=== PATIENT | female | born 1950 | race African-American/Black ===

== ENCOUNTER 2016-09-26 20:47 | Emergency (ER) | payer OTHER ==
[2016-09-26 23:38] LABS: BASOPHIL 0.2 % (0-2); EOSINOPHIL 0.2 % (0-5); HCT 41.5 % (37.0-47.0); HGB 13.8 g/dl (12.5-16.0); LYMPHOCYTE 23.2 % (15-48); MCH 28.2 pg (25.0-31.0); MCHC 33.3 g/dL (32.0-36.0); MCV 84.9 fL (78.0-100.0); MONOCYTE 9.2 % (0-12); NEUTROPHIL 67.2 % (41-80); PLT 282 K/uL (150-400); RBC 4.89 M/uL (4.20-5.40); RDW 14.7 % (11.5-14.0); WBC 4.7 K/uL (4.0-10.5)
[2016-09-26 23:47] LABS: ALBUMIN 4.9 g/dL (3.4-4.8); BILIRUBIN - TOTAL 0.2 mg/dL (0.1-1.0); CREATININE 1.4 mg/dL (0.5-1.0); GLOBULIN (CALCULATION) 3.4 g/dL (2.2-4.2); POTASSIUM 3.4 mmol/L (3.5-5.1); TOTAL PROTEIN 8.3 g/dL (6.4-8.3)
[2016-09-26 23:50] LABS: COLOR YELLOW (YELLOW)
[2016-09-26 23:51] LABS: BILIRUBIN NEGATIVE (NEGATIVE); BLOOD TRACE-INTACT Ery/uL (NEGATIVE); CLARITY CLEAR (CLEAR); GLUCOSE (U) NORMAL (NORMAL); KETONE (U) NEGATIVE (NEGATIVE); LEUKOCYTES 1+ Leu/uL (NEGATIVE); NITRITE NEGATIVE (NEGATIVE); PROTEIN NEGATIVE (NEGATIVE); UROBILINOGEN 0.2 mg/dL (0.2-1.0)
[2016-09-27 00:08] LABS: BACTERIA TRACE; MUCOUS TRACE
== END 2016-09-27 01:40 | disposition home or self-care (01) ==
LOC: FER 20:47
PROVIDERS: Nurse Practitioner Family
DX: R19.7 Diarrhea, unspecified (principal); N39.0 Urinary tract infection, site not specified; N18.9 Chronic kidney disease, unspecified; D86.9 Sarcoidosis, unspecified; Z88.5 Allergy status to narcotic agent; Z88.8 Allergy status to other drugs, medicaments and biological substances; Z79.51 Long term (current) use of inhaled steroids; Z79.899 Other long term (current) drug therapy
CPT/HCPCS: 36415; 80053; 81001; 85025

== ENCOUNTER 2016-11-18 19:31 | Emergency (ER) | payer OTHER ==
[2016-11-18 20:17] LABS: BASOPHIL 0.4 % (0-2); EOSINOPHIL 0.2 % (0-7); HCT 38.7 % (37.0-47.0); HGB 13.3 g/dl (12.5-16.0); LYMPHOCYTE 9.3 % (15-48); MCH 29.3 pg (25.0-31.0); MCHC 34.4 g/dL (32.0-36.0); MCV 85.2 fL (78.0-100.0); MONOCYTE 3.4 % (0-12); MPV 10.1 fL (6.0-9.5); NEUTROPHIL 86.7 % (41-80); PLT 305 K/uL (150-400); RBC 4.54 M/uL (4.20-5.40); WBC 5.3 K/uL (4.0-10.5)
[2016-11-18 20:37] LABS: ALBUMIN 4.1 g/dL (3.4-4.8); BILIRUBIN - TOTAL 0.3 mg/dL (0.1-1.0); CREATININE 1.1 mg/dL (0.5-1.0); GLOBULIN (CALCULATION) 3.1 g/dL (2.2-4.2); POTASSIUM 4.1 mmol/L (3.5-5.1); TOTAL PROTEIN 7.2 g/dL (6.4-8.3)
[2016-11-18 21:07] LABS: BILIRUBIN NEGATIVE (NEGATIVE); BLOOD NEGATIVE Ery/uL (NEGATIVE); CLARITY CLEAR (CLEAR); COLOR YELLOW (YELLOW); GLUCOSE (U) NORMAL (NORMAL); KETONE (U) NEGATIVE (NEGATIVE); LEUKOCYTES NEGATIVE Leu/uL (NEGATIVE); NITRITE NEGATIVE (NEGATIVE); PROTEIN NEGATIVE (NEGATIVE); SPECIFIC GRAVITY 1.015 (1.001-1.030); pH 7.5 (5.0-9.0)
== END 2016-11-18 23:50 | disposition home or self-care (01) ==
LOC: FER 19:31
PROVIDERS: Emergency Medicine Emergency Medical Services
DX: R11.2 Nausea with vomiting, unspecified (principal); R30.0 Dysuria; I12.0 Hypertensive chronic kidney disease with stage 5 chronic kidney disease or end stage renal disease; N18.6 End stage renal disease; J44.9 Chronic obstructive pulmonary disease, unspecified; D86.9 Sarcoidosis, unspecified; Z90.710 Acquired absence of both cervix and uterus; Z88.5 Allergy status to narcotic agent; Z88.8 Allergy status to other drugs, medicaments and biological substances
CPT/HCPCS: 36415; 71010; 80053; 81003; 82150; 83690; 85025; 87088; 93005; J2060; J2405; J2930

== ENCOUNTER 2020-08-16 19:01 | Emergency (ER) | payer OTHER ==
[~2020-08-16 19:01] MED LIST: AMOXICILLIN875 MG PO; ANTIVERT25 MG PO; ASPIRIN CHEWABL81 MG PO; ATIVAN0.5 MG PO; AUGMENTIN 875-1 EACH PO; BENADRYL25 MG PO; BENTYL10 MG PO; BUSPIRONE HCL15 MG PO; CEFDINIR300 MG PO; CLEOCIN300 MG PO; COZAAR50 MG PO; CRESTOR5 MG PO; DEBROX15 ML AU; FLONASE ALLER15.8 ML; HCTZ12.5 MG PO; LIPITOR40 MG PO; MACROBID100 MG PO; NORVASC5 MG PO; PHENERGAN12.5 M1 PO; PHENERGAN25 M1 PO; PLAVIX75 MG PO; PREDNISONE 20MG20 MG PO; TAMIFLU 75MG CA75 MG PO; TOPROL XL25 MG PO; TRAMADOL HCL50 MG PO; TRAZODONE 100M100 MG PO; VITAMIN D-32000 UNIT PO; WELLBUTRIN SR150 MG PO; ZOFRAN4 M1 PO; ZOFRAN4 MG PO; ZOFRAN8 MG PO
[2020-08-16 19:46] LABS: BASOPHIL 0.9 % (0-2); EOSINOPHIL 2.7 % (0-7); HCT 42.2 % (37.0-47.0); HGB 13.5 g/dl (12.5-16.0); LYMPHOCYTE 29.5 % (15-48); MCV 90.6 fL (78.0-100.0); MONOCYTE 12.1 % (0-12); MPV 10.1 fL (6.0-9.5); NEUTROPHIL 54.5 % (41-80); NRBC 0; PLT 290 K/uL (150-400); RBC 4.66 M/uL (4.20-5.40); RDW 14.2 % (11.5-14.0); WBC 3.4 K/uL (4.0-10.5)
[2020-08-16 19:55] LABS: INR 0.97 (0.9-1.2); PROTHROMBIN TIME 12.2 SECONDS (11.4-13.6); PTT 27.3 SECONDS (22.2-34.7)
[2020-08-16 20:01] LABS: BILIRUBIN - TOTAL 0.6 mg/dL (0.2-1.0); BUN/CREAT RATIO (CALC) 17.1 RATIO; CREATININE 1.29 mg/dL (0.51-0.95); GLOBULIN (CALCULATION) 3.8 g/dL; MAGNESIUM 2.2 mg/dL (1.8-2.4); POTASSIUM 3.8 mmol/L (3.5-5.1); TOTAL PROTEIN 7.8 g/dL (6.4-8.2)
[2020-08-17] MEDS ORDERED: ZOFRAN4 M1 PO (00:55)
[2020-08-17] MEDS ORDERED: NORCO 5-325 TA1 EACH PO (00:55)
== END 2020-08-17 01:17 | disposition home or self-care (01) ==
LOC: FER 19:01
PROVIDERS: Emergency Medicine
DX: R10.13 Epigastric pain (principal); R07.89 Other chest pain; R11.2 Nausea with vomiting, unspecified; I25.10 Atherosclerotic heart disease of native coronary artery without angina pectoris; Z79.82 Long term (current) use of aspirin; Z79.02 Long term (current) use of antithrombotics/antiplatelets; Z98.890 Other specified postprocedural states; Z95.5 Presence of coronary angioplasty implant and graft; Z88.5 Allergy status to narcotic agent; Z88.8 Allergy status to other drugs, medicaments and biological substances; Z20.822 Contact with and (suspected) exposure to COVID-19
CPT/HCPCS: 36415; 71045; 71275; 80053; 83735; 84484; 85025; 85379; 85610; 85730; 93005; J1170; J2550; J7030; Q9967; U0002

== ENCOUNTER 2020-09-01 23:02 | Emergency (ER) | payer OTHER ==
[~2020-09-01 23:02] MED LIST changes: +NORCO 5-325 TA1 EACH PO
[2020-09-01 23:28] LABS: BASOPHIL 0.9 % (0-2); EOSINOPHIL 2.2 % (0-7); HCT 39.9 % (37.0-47.0); HGB 12.9 g/dl (12.5-16.0); LYMPHOCYTE 41.4 % (15-48); MCH 29.2 pg (25.0-31.0); MCHC 32.3 g/dL (32.0-36.0); MCV 90.3 fL (78.0-100.0); MONOCYTE 10.6 % (0-12); MPV 10.6 fL (6.0-9.5); NEUTROPHIL 44.6 % (41-80); NRBC 0; PLT 274 K/uL (150-400); RBC 4.42 M/uL (4.20-5.40); RDW 13.8 % (11.5-14.0); WBC 3.2 K/uL (4.0-10.5)
[2020-09-01 23:40] LABS: ALBUMIN 3.7 g/dL (3.4-5.0); BILIRUBIN - TOTAL 0.5 mg/dL (0.2-1.0); BUN/CREAT RATIO (CALC) 16.2 RATIO; CREATININE 0.99 mg/dL (0.51-0.95); GLOBULIN (CALCULATION) 3.7 g/dL; POTASSIUM 3.4 mmol/L (3.5-5.1); TOTAL PROTEIN 7.4 g/dL (6.4-8.2)
== END 2020-09-02 00:30 | disposition home or self-care (01) ==
LOC: FER 23:02
PROVIDERS: Emergency Medicine
DX: R10.9 Unspecified abdominal pain (principal); R11.2 Nausea with vomiting, unspecified; I10 Essential (primary) hypertension; Z90.49 Acquired absence of other specified parts of digestive tract
CPT/HCPCS: 36415; 80053; 85025; 96372; 99284; J0500; J2550

== ENCOUNTER 2020-10-10 17:44 | Emergency (ER) | payer OTHER ==
[2020-10-10 18:21] LABS: BASOPHIL 0.9 % (0-2); EOSINOPHIL 1.8 % (0-7); HCT 43.6 % (37.0-47.0); HGB 14.6 g/dl (12.5-16.0); LYMPHOCYTE 28.6 % (15-48); MCHC 33.5 g/dL (32.0-36.0); MCV 89.7 fL (78.0-100.0); MONOCYTE 10.4 % (0-12); MPV 9.7 fL (6.0-9.5); NEUTROPHIL 58.3 % (41-80); NRBC 0; PLT 306 K/uL (150-400); RBC 4.86 M/uL (4.20-5.40); RDW 13.4 % (11.5-14.0); WBC 3.4 K/uL (4.0-10.5)
[2020-10-10 18:40] LABS: ALBUMIN 4.4 g/dL (3.4-5.0); BILIRUBIN - TOTAL 0.9 mg/dL (0.2-1.0); BUN/CREAT RATIO (CALC) 14.4 RATIO; CREATININE 1.18 mg/dL (0.51-0.95); GLOBULIN (CALCULATION) 4.5 g/dL; POTASSIUM 3.7 mmol/L (3.5-5.1); TOTAL PROTEIN 8.9 g/dL (6.4-8.2)
[2020-10-10] MEDS ORDERED: ONDANSETRON ODT4 MG SL (21:07)
[2020-10-10 21:28] LABS: BILIRUBIN 1+ mg/dL (NEGATIVE); BLOOD TRACE-INTACT Ery/uL (NEGATIVE); CLARITY CLEAR (CLEAR); COLOR YELLOW (YELLOW); GLUCOSE (U) NORMAL (NORMAL); LEUKOCYTES 2+ Leu/uL (NEGATIVE); NITRITE NEGATIVE (NEGATIVE); PROTEIN NEGATIVE (NEGATIVE); SPECIFIC GRAVITY 1.025 (1.001-1.030)
[2020-10-10 21:35] LABS: BACTERIA 2+; URINARY WBC 20-50
== END 2020-10-10 21:51 | disposition home or self-care (01) ==
LOC: FER 17:44
PROVIDERS: Emergency Medicine; Emergency Medicine Emergency Medical Services
DX: R07.89 Other chest pain (principal); Z88.5 Allergy status to narcotic agent; Z88.8 Allergy status to other drugs, medicaments and biological substances
CPT/HCPCS: 36415; 71045; 80053; 81001; 84484; 85025; 93005; J2550; Q0162

== ENCOUNTER 2020-11-03 02:14 | Emergency (ER) | payer OTHER ==
[~2020-11-03 02:14] MED LIST changes: +ONDANSETRON ODT4 MG SL
[2020-11-03 03:10] LABS: BASOPHIL 0.8 % (0-2); HCT 37.4 % (37.0-47.0); HGB 12.6 g/dl (12.5-16.0); LYMPHOCYTE 20.3 % (15-48); MCH 30.4 pg (25.0-31.0); MCHC 33.7 g/dL (32.0-36.0); MCV 90.1 fL (78.0-100.0); MONOCYTE 8.8 % (0-12); MPV 10.8 fL (6.0-9.5); NEUTROPHIL 67.3 % (41-80); NRBC 0; PLT 282 K/uL (150-400); RBC 4.15 M/uL (4.20-5.40); RDW 13.8 % (11.5-14.0)
[2020-11-03 03:14] LABS: INR 0.91 (0.9-1.2); PROTHROMBIN TIME 11.6 SECONDS (11.4-13.6); PTT 24.3 SECONDS (22.2-34.7)
[2020-11-03 03:24] LABS: ALBUMIN 3.9 g/dL (3.4-5.0); BILIRUBIN - TOTAL 0.5 mg/dL (0.2-1.0); BUN/CREAT RATIO (CALC) 22.8 RATIO; CREATININE 1.01 mg/dL (0.51-0.95); GLOBULIN (CALCULATION) 3.5 g/dL; POTASSIUM 3.5 mmol/L (3.5-5.1); TOTAL PROTEIN 7.4 g/dL (6.4-8.2)
[2020-11-03 03:45] LABS: PRO-BNP 168 pg/mL (<125)
[2020-11-03 04:54] LABS: BILIRUBIN NEGATIVE (NEGATIVE); BLOOD NEGATIVE Ery/uL (NEGATIVE); CLARITY CLEAR (CLEAR); COLOR YELLOW (YELLOW); GLUCOSE (U) NORMAL (NORMAL); LEUKOCYTES 1+ Leu/uL (NEGATIVE); NITRITE NEGATIVE (NEGATIVE); PROTEIN NEGATIVE (NEGATIVE); SPECIFIC GRAVITY 1.015 (1.001-1.030); UROBILINOGEN 0.2 mg/dL (0.2-1.0)
[2020-11-03 05:00] LABS: BACTERIA TRACE; SQUAMOUS EPITHELIAL CELLS RARE
[2020-11-03] MEDS ORDERED: ULTRAM50 MG PO (05:12)
[2020-11-03] MEDS ORDERED: ONDANSETRON ODT4 MG PO (05:12)
== END 2020-11-03 05:45 | disposition home or self-care (01) ==
LOC: FER 02:14
PROVIDERS: Emergency Medicine
DX: R11.2 Nausea with vomiting, unspecified (principal); R05 Cough; R06.02 Shortness of breath; E78.5 Hyperlipidemia, unspecified; F17.200 Nicotine dependence, unspecified, uncomplicated; Z88.5 Allergy status to narcotic agent; Z88.8 Allergy status to other drugs, medicaments and biological substances; Z79.899 Other long term (current) drug therapy; Z79.02 Long term (current) use of antithrombotics/antiplatelets; Z79.82 Long term (current) use of aspirin
CPT/HCPCS: 36415; 71045; 80053; 81001; 83605; 83880; 84145; 84484; 85025; 85610; 85730; J1170; J2405; J7030

== ENCOUNTER 2021-02-04 03:09 | Emergency (ER) | payer OTHER ==
[~2021-02-04 03:09] MED LIST changes: +ONDANSETRON ODT4 MG PO; +ULTRAM50 MG PO
[2021-02-04 03:58] LABS: BASOPHIL 1.3 % (0-2); EOSINOPHIL 3.8 % (0-7); HCT 38.7 % (37.0-47.0); HGB 12.3 g/dl (12.5-16.0); LYMPHOCYTE 31.4 % (15-48); MCH 28.7 pg (25.0-31.0); MCHC 31.8 g/dL (32.0-36.0); MCV 90.4 fL (78.0-100.0); MONOCYTE 11.4 % (0-12); MPV 10.3 fL (6.0-9.5); NEUTROPHIL 51.7 % (41-80); NRBC 0; PLT 251 K/uL (150-400); RBC 4.28 M/uL (4.20-5.40); RDW 13.5 % (11.5-14.0); WBC 2.4 K/uL (4.0-10.5)
[2021-02-04 04:44] LABS: ALBUMIN 3.5 g/dL (3.4-5.0); BILIRUBIN - TOTAL 0.3 mg/dL (0.2-1.0); BUN/CREAT RATIO (CALC) 21.4 RATIO; CREATININE 1.12 mg/dL (0.51-0.95); GLOBULIN (CALCULATION) 3.7 g/dL; POTASSIUM 3.5 mmol/L (3.5-5.1); TOTAL PROTEIN 7.2 g/dL (6.4-8.2)
== END 2021-02-04 05:20 | disposition home or self-care (01) ==
LOC: FER 03:09
PROVIDERS: Emergency Medicine
DX: R05 Cough (principal); R07.89 Other chest pain; N18.9 Chronic kidney disease, unspecified; R09.89 Other specified symptoms and signs involving the circulatory and respiratory systems; R06.02 Shortness of breath; Z88.5 Allergy status to narcotic agent; Z88.8 Allergy status to other drugs, medicaments and biological substances; Z20.822 Contact with and (suspected) exposure to COVID-19
CPT/HCPCS: 36415; 71045; 80053; 84484; 85025; 93005; J2405; J7030; U0002

== ENCOUNTER 2021-02-09 11:14 | Emergency (ER) | payer OTHER ==
[2021-02-09 14:15] LABS: BASOPHIL 0.6 % (0-2); EOSINOPHIL 1.7 % (0-7); HCT 42.2 % (37.0-47.0); HGB 13.5 g/dl (12.5-16.0); LYMPHOCYTE 25.1 % (15-48); MCH 28.5 pg (25.0-31.0); MCV 89.2 fL (78.0-100.0); MONOCYTE 10.7 % (0-12); MPV 10.2 fL (6.0-9.5); NEUTROPHIL 61.6 % (41-80); NRBC 0; PLT 290 K/uL (150-400); RBC 4.73 M/uL (4.20-5.40); RDW 13.3 % (11.5-14.0); WBC 3.5 K/uL (4.0-10.5)
[2021-02-09 14:27] LABS: ALBUMIN 3.8 g/dL (3.4-5.0); BILIRUBIN - TOTAL 0.5 mg/dL (0.2-1.0); BUN/CREAT RATIO (CALC) 16.3 RATIO; CREATININE 1.23 mg/dL (0.51-0.95); GLOBULIN (CALCULATION) 4.3 g/dL; POTASSIUM 3.9 mmol/L (3.5-5.1); TOTAL PROTEIN 8.1 g/dL (6.4-8.2)
[2021-02-09 15:08] LABS: BILIRUBIN NEGATIVE (NEGATIVE); BLOOD TRACE-LYSED Ery/uL (NEGATIVE); CLARITY CLEAR (CLEAR); COLOR YELLOW (YELLOW); GLUCOSE (U) NORMAL (NORMAL); LEUKOCYTES 2+ Leu/uL (NEGATIVE); NITRITE NEGATIVE (NEGATIVE); PROTEIN NEGATIVE (NEGATIVE); pH 6.5 (5.0-9.0)
[2021-02-09 15:22] LABS: URINARY RBC RARE
[2021-02-09 15:23] LABS: BACTERIA TRACE
== END 2021-02-09 16:24 | disposition home or self-care (01) ==
LOC: FER 11:14
PROVIDERS: Physician Assistant
DX: B34.9 Viral infection, unspecified (principal); I51.9 Heart disease, unspecified; Z20.822 Contact with and (suspected) exposure to COVID-19; Z88.5 Allergy status to narcotic agent; Z88.8 Allergy status to other drugs, medicaments and biological substances
CPT/HCPCS: 36415; 71045; 71046; 80053; 81001; 84484; 85025; 93005; J2405; J7030; Q0169; U0002

== ENCOUNTER 2021-03-25 12:04 | Emergency (ER) | payer OTHER ==
[~2021-03-25] VITALS: Ht 162.6 cm; Wt 68.0 kg
[2021-03-25 13:33] LABS: BASOPHIL 0.4 % (0-2); EOSINOPHIL 1.1 % (0-7); HGB 13.8 g/dl (12.5-16.0); LYMPHOCYTE 20.1 % (15-48); MCH 28.8 pg (25.0-31.0); MCHC 32.1 g/dL (32.0-36.0); MCV 89.8 fL (78.0-100.0); MONOCYTE 8.3 % (0-12); MPV 10.4 fL (6.0-9.5); NEUTROPHIL 69.9 % (41-80); NRBC 0; PLT 267 K/uL (150-400); RBC 4.79 M/uL (4.20-5.40); RDW 13.8 % (11.5-14.0); WBC 4.5 K/uL (4.0-10.5)
[2021-03-25 13:41] LABS: BILIRUBIN NEGATIVE (NEGATIVE); BLOOD 1+ Ery/uL (NEGATIVE); CLARITY CLEAR (CLEAR); COLOR YELLOW (YELLOW); GLUCOSE (U) NORMAL (NORMAL); LEUKOCYTES 1+ Leu/uL (NEGATIVE); NITRITE NEGATIVE (NEGATIVE); PROTEIN NEGATIVE (NEGATIVE); SPECIFIC GRAVITY >=1.030 (1.001-1.030); UROBILINOGEN 0.2 mg/dL (0.2-1.0); pH 5.5 (5.0-9.0)
[2021-03-25 13:45] LABS: INR 0.97 (0.9-1.2); PROTHROMBIN TIME 12.3 SECONDS (11.8-13.4)
[2021-03-25 13:51] LABS: BACTERIA 1+
[2021-03-25 14:04] LABS: BILIRUBIN - TOTAL 0.5 mg/dL (0.2-1.0); BUN/CREAT RATIO (CALC) 17.1 RATIO; CREATININE 1.4 mg/dL (0.51-0.95); GLOBULIN (CALCULATION) 4.1 g/dL; POTASSIUM 3.9 mmol/L (3.5-5.1); TOTAL PROTEIN 8.1 g/dL (6.4-8.2)
== END 2021-03-25 15:35 | disposition home or self-care (01) ==
LOC: FER 12:04
PROVIDERS: Emergency Medicine
DX: R07.89 Other chest pain (principal); Z88.8 Allergy status to other drugs, medicaments and biological substances; Z88.6 Allergy status to analgesic agent
CPT/HCPCS: 36415; 71046; 80053; 81001; 84484; 85025; 85610; 85730; 87088; 93005

== ENCOUNTER 2021-04-29 20:59 | Emergency (ER) | payer OTHER ==
[2021-04-29 21:24] LABS: BASOPHIL 0.5 % (0-2); EOSINOPHIL 0.3 % (0-7); HCT 41.6 % (37.0-47.0); HGB 13.6 g/dl (12.5-16.0); LYMPHOCYTE 21.2 % (15-48); MCH 29.1 pg (25.0-31.0); MCHC 32.7 g/dL (32.0-36.0); MCV 88.9 fL (78.0-100.0); MONOCYTE 5.8 % (0-12); MPV 10.2 fL (6.0-9.5); NEUTROPHIL 72.2 % (41-80); NRBC 0; PLT 266 K/uL (150-400); RBC 4.68 M/uL (4.20-5.40); WBC 3.8 K/uL (4.0-10.5)
[2021-04-29 21:28] LABS: INR 0.96 (0.9-1.2); PROTHROMBIN TIME 12.2 SECONDS (11.8-13.4); PTT 28.2 SECONDS (24.4-34.7)
[2021-04-29 21:33] LABS: BILIRUBIN - TOTAL 0.5 mg/dL (0.2-1.0); CREATININE 1.07 mg/dL (0.51-0.95); GLOBULIN (CALCULATION) 3.9 g/dL; POTASSIUM 3.6 mmol/L (3.5-5.1); TOTAL PROTEIN 7.9 g/dL (6.4-8.2)
[2021-04-29 23:23] LABS: CORONAVIRUS 2019 SARS-COV-2 NEGATIVE (NEGATIVE); INFLUENZA A NAA NEGATIVE (NEGATIVE)
[2021-04-30] MEDS ORDERED: ZPAK PO (02:12)
[2021-04-30] MEDS ORDERED: TESSALON PERLE100 M1 PO (02:12)
== END 2021-04-30 02:49 | disposition home or self-care (01) ==
LOC: FER 20:59
PROVIDERS: Emergency Medicine
DX: J06.9 Acute upper respiratory infection, unspecified (principal); R07.89 Other chest pain; I10 Essential (primary) hypertension; I25.10 Atherosclerotic heart disease of native coronary artery without angina pectoris; Z88.6 Allergy status to analgesic agent; Z88.8 Allergy status to other drugs, medicaments and biological substances; Z20.822 Contact with and (suspected) exposure to COVID-19
CPT/HCPCS: 36415; 71045; 80053; 84484; 85025; 85379; 85610; 85730; 93005; J1885; J7030; U0002

== ENCOUNTER 2021-06-03 16:52 | Emergency (ER) | payer OTHER ==
[~2021-06-03 16:52] MED LIST changes: +TESSALON PERLE100 M1 PO; +ZPAK PO
[2021-06-03 17:44] LABS: BASOPHIL 0.9 % (0-2); HCT 41.7 % (37.0-47.0); HGB 13.7 g/dl (12.5-16.0); LYMPHOCYTE 33.4 % (15-48); MCH 29.1 pg (25.0-31.0); MCHC 32.9 g/dL (32.0-36.0); MCV 88.5 fL (78.0-100.0); MONOCYTE 14.6 % (0-12); MPV 10.8 fL (6.0-9.5); NEUTROPHIL 47.9 % (41-80); NRBC 0; PLT 264 K/uL (150-400); RBC 4.71 M/uL (4.20-5.40); RDW 14.1 % (11.5-14.0); WBC 4.3 K/uL (4.0-10.5)
[2021-06-03 17:59] LABS: CREATININE 1.12 mg/dL (0.51-0.95); POTASSIUM 3.4 mmol/L (3.5-5.1)
[2021-06-03 18:18] LABS: CORONAVIRUS 2019 SARS-COV-2 NEGATIVE (NEGATIVE); INFLUENZA A NAA NEGATIVE (NEGATIVE)
== END 2021-06-03 18:53 | disposition home or self-care (01) ==
LOC: FER 16:52
PROVIDERS: Emergency Medicine
DX: J06.9 Acute upper respiratory infection, unspecified (principal); B97.89 Other viral agents as the cause of diseases classified elsewhere; J44.9 Chronic obstructive pulmonary disease, unspecified; I10 Essential (primary) hypertension; Z20.822 Contact with and (suspected) exposure to COVID-19; Z88.5 Allergy status to narcotic agent; Z88.8 Allergy status to other drugs, medicaments and biological substances
CPT/HCPCS: 36415; 71045; 80048; 85025; U0002

== ENCOUNTER 2021-06-18 14:48 | Emergency (ER) | payer OTHER ==
[2021-06-18 15:32] LABS: BASOPHIL 0.7 % (0-2); EOSINOPHIL 0.7 % (0-7); HCT 40.8 % (37.0-47.0); HGB 13.4 g/dl (12.5-16.0); LYMPHOCYTE 31.5 % (15-48); MCH 29.3 pg (25.0-31.0); MCHC 32.8 g/dL (32.0-36.0); MCV 89.1 fL (78.0-100.0); MONOCYTE 11.2 % (0-12); MPV 10.6 fL (6.0-9.5); NEUTROPHIL 55.7 % (41-80); NRBC 0; PLT 292 K/uL (150-400); RBC 4.58 M/uL (4.20-5.40); RDW 14.2 % (11.5-14.0); WBC 4.1 K/uL (4.0-10.5)
[2021-06-18 15:36] LABS: INR 0.99 (0.9-1.2); PROTHROMBIN TIME 12.5 SECONDS (11.8-13.4); PTT 26.1 SECONDS (24.4-34.7)
[2021-06-18 15:51] LABS: BILIRUBIN - TOTAL 0.4 mg/dL (0.2-1.0); BUN/CREAT RATIO (CALC) 13.4 RATIO; CREATININE 1.27 mg/dL (0.51-0.95); GLOBULIN (CALCULATION) 3.6 g/dL; POTASSIUM 3.6 mmol/L (3.5-5.1); TOTAL PROTEIN 7.6 g/dL (6.4-8.2)
[2021-06-18 17:20] LABS: CORONAVIRUS 2019 SARS-COV-2 NEGATIVE (NEGATIVE); INFLUENZA A NAA NEGATIVE (NEGATIVE)
[2021-06-18] MEDS ORDERED: AZITHROMYCIN250 MG PO (18:21)
[2021-06-18] MEDS ORDERED: AUGMENTIN 875-1 EACH PO (18:21)
== END 2021-06-18 18:33 | disposition home or self-care (01) ==
LOC: FER 14:48
PROVIDERS: Internal Medicine
DX: J18.9 Pneumonia, unspecified organism (principal); R07.89 Other chest pain; N18.31 Chronic kidney disease, stage 3a; I25.2 Old myocardial infarction; Z20.822 Contact with and (suspected) exposure to COVID-19; Z88.5 Allergy status to narcotic agent
CPT/HCPCS: 36415; 71045; 71250; 80053; 83690; 83880; 84484; 85025; 85610; 85730; 93005; J1170; J2405; U0002

== ENCOUNTER 2021-07-15 04:22 | Emergency (ER) | payer OTHER ==
[~2021-07-15 04:22] MED LIST changes: +AZITHROMYCIN250 MG PO
[2021-07-15 09:58] LABS: ALBUMIN 4.5 g/dL (3.4-5.0); BILIRUBIN - TOTAL 0.7 mg/dL (0.2-1.0); BUN/CREAT RATIO (CALC) 10.4 RATIO; CREATININE 1.06 mg/dL (0.51-0.95); GLOBULIN (CALCULATION) 3.5 g/dL; POTASSIUM 3.9 mmol/L (3.5-5.1)
[2021-07-15 11:17] LABS: BILIRUBIN NEGATIVE (NEGATIVE); BLOOD TRACE-INTACT Ery/uL (NEGATIVE); CLARITY CLEAR (CLEAR); COLOR YELLOW (YELLOW); GLUCOSE (U) NORMAL (NORMAL); LEUKOCYTES 1+ Leu/uL (NEGATIVE); NITRITE NEGATIVE (NEGATIVE); PROTEIN NEGATIVE (NEGATIVE); pH 6.5 (5.0-9.0)
[2021-07-15 11:43] LABS: BACTERIA TRACE; URINARY RBC RARE
[2021-07-15] MEDS ORDERED: VIBRAMYCIN100 MG PO (12:07)
[2021-07-15] MEDS ORDERED: ONDANSETRON ODT4 MG PO (12:07)
[2021-07-15] MEDS ORDERED: ULTRAM50 MG PO (12:07)
== END 2021-07-15 12:57 | disposition home or self-care (01) ==
LOC: FER 04:22
PROVIDERS: Emergency Medicine
DX: J18.9 Pneumonia, unspecified organism (principal); H92.01 Otalgia, right ear; R51.9 Headache, unspecified; I10 Essential (primary) hypertension; Z20.822 Contact with and (suspected) exposure to COVID-19; Z88.5 Allergy status to narcotic agent
CPT/HCPCS: 36415; 70450; 71250; 80053; 81001; 84145; 93005; J1170; J1200; J2405; U0002

== ENCOUNTER 2021-08-27 10:43 | Emergency (ER) | payer OTHER ==
[~2021-08-27 10:43] MED LIST changes: +VIBRAMYCIN100 MG PO
[2021-08-27 11:15] LABS: BASOPHIL 0.6 % (0-2); EOSINOPHIL 0.9 % (0-7); HCT 40.1 % (37.0-47.0); HGB 13.1 g/dl (12.5-16.0); LYMPHOCYTE 32.1 % (15-48); MCH 29.8 pg (25.0-31.0); MCHC 32.7 g/dL (32.0-36.0); MCV 91.1 fL (78.0-100.0); MONOCYTE 8.6 % (0-12); MPV 10.6 fL (6.0-9.5); NEUTROPHIL 57.5 % (41-80); NRBC 0; PLT 241 K/uL (150-400); RDW 13.5 % (11.5-14.0); WBC 3.2 K/uL (4.0-10.5)
[2021-08-27 11:37] LABS: BILIRUBIN - TOTAL 0.6 mg/dL (0.2-1.0); BUN/CREAT RATIO (CALC) 11.5 RATIO; CREATININE 1.22 mg/dL (0.51-0.95); GLOBULIN (CALCULATION) 3.6 g/dL; MAGNESIUM 2.2 mg/dL (1.8-2.4); POTASSIUM 3.4 mmol/L (3.5-5.1); TOTAL PROTEIN 7.6 g/dL (6.4-8.2)
== END 2021-08-27 16:12 | disposition home or self-care (01) ==
LOC: FER 10:43
PROVIDERS: Emergency Medicine
DX: R07.89 Other chest pain (principal); F41.9 Anxiety disorder, unspecified; I12.9 Hypertensive chronic kidney disease with stage 1 through stage 4 chronic kidney disease, or unspecified chronic kidney disease; N18.9 Chronic kidney disease, unspecified; Z88.5 Allergy status to narcotic agent; Z88.8 Allergy status to other drugs, medicaments and biological substances
CPT/HCPCS: 36415; 71045; 71275; 80053; 83735; 83880; 84484; 85025; 85379; 93005; J2060; J7030; Q9967

== ENCOUNTER 2021-11-14 08:11 | Emergency (ER) | payer OTHER ==
[~2021-11-14] VITALS: Ht 162.6 cm; Wt 77.1 kg
[2021-11-14 10:07] LABS: BASOPHIL 0.6 % (0-2); EOSINOPHIL 0.9 % (0-7); HCT 42.4 % (37.0-47.0); LYMPHOCYTE 27.7 % (15-48); MCH 29.8 pg (25.0-31.0); MCV 90.2 fL (78.0-100.0); MONOCYTE 11.2 % (0-12); MPV 10.1 fL (6.0-9.5); NEUTROPHIL 59.3 % (41-80); NRBC 0; PLT 276 K/uL (150-400); RDW 13.2 % (11.5-14.0); WBC 3.3 K/uL (4.0-10.5)
[2021-11-14 10:21] LABS: ALBUMIN 3.9 g/dL (3.4-5.0); BILIRUBIN - TOTAL 0.5 mg/dL (0.2-1.0); BUN/CREAT RATIO (CALC) 18.1 RATIO; CREATININE 1.55 mg/dL (0.51-0.95); GLOBULIN (CALCULATION) 3.9 g/dL; POTASSIUM 4.4 mmol/L (3.5-5.1); TOTAL PROTEIN 7.8 g/dL (6.4-8.2)
[2021-11-14 10:25] LABS: BILIRUBIN NEGATIVE (NEGATIVE); BLOOD NEGATIVE Ery/uL (NEGATIVE); CLARITY CLEAR (CLEAR); COLOR YELLOW (YELLOW); GLUCOSE (U) NORMAL (NORMAL); LEUKOCYTES 1+ Leu/uL (NEGATIVE); NITRITE NEGATIVE (NEGATIVE); PROTEIN NEGATIVE (NEGATIVE); SPECIFIC GRAVITY 1.025 (1.001-1.030)
[2021-11-14 10:33] LABS: BACTERIA TRACE; URINARY WBC 20-50
[2021-11-14 10:34] LABS: CALCIUM OXALATE CRYSTALS MODERATE; MUCOUS TRACE
[2021-11-14] MEDS ORDERED: ULTRAM50 MG PO (13:11)
[2021-11-14] MEDS ORDERED: AUGMENTIN 500-1 EACH PO (13:11)
[2021-11-14] MEDS ORDERED: ONDANSETRON ODT4 MG PO (13:11)
== END 2021-11-14 13:24 | disposition home or self-care (01) ==
LOC: FER 08:11
PROVIDERS: Emergency Medicine
DX: N39.0 Urinary tract infection, site not specified (principal); Z88.5 Allergy status to narcotic agent; Z88.6 Allergy status to analgesic agent
CPT/HCPCS: 36415; 80053; 81001; 82150; 83690; 85025; J0696; J2405

== ENCOUNTER 2022-01-24 02:30 | Emergency (ER) | payer OTHER ==
[~2022-01-24 02:30] MED LIST changes: +AUGMENTIN 500-1 EACH PO
[2022-01-24 03:20] LABS: BASOPHIL 0.9 % (0-2); EOSINOPHIL 2.2 % (0-7); HCT 40.2 % (37.0-47.0); HGB 13.1 g/dl (12.5-16.0); LYMPHOCYTE 22.8 % (15-48); MCH 29.6 pg (25.0-31.0); MCHC 32.6 g/dL (32.0-36.0); MCV 90.7 fL (78.0-100.0); MONOCYTE 5.9 % (0-12); MPV 10.5 fL (6.0-9.5); NEUTROPHIL 67.9 % (41-80); NRBC 0; PLT 240 K/uL (150-400); RBC 4.43 M/uL (4.20-5.40); RDW 13.6 % (11.5-14.0); WBC 3.2 K/uL (4.0-10.5)
[2022-01-24 03:31] LABS: INR 0.91 (0.9-1.2); PTT 28.7 SECONDS (24.9-34.6)
[2022-01-24 03:41] LABS: ALBUMIN 3.8 g/dL (3.4-5.0); BILIRUBIN - TOTAL 0.4 mg/dL (0.2-1.0); BUN/CREAT RATIO (CALC) 18.8 RATIO; CREATININE 1.17 mg/dL (0.51-0.95); GLOBULIN (CALCULATION) 3.8 g/dL; POTASSIUM 3.8 mmol/L (3.5-5.1); TOTAL PROTEIN 7.6 g/dL (6.4-8.2)
[2022-01-24 03:57] LABS: CORONAVIRUS 2019 SARS-COV-2 NEGATIVE (NEGATIVE); INFLUENZA A NAA NEGATIVE (NEGATIVE)
[2022-01-24] MEDS ORDERED: MEDROL 4MG DOSEP4 MG PO (06:32)
[2022-01-24] MEDS ORDERED: AZITHROMYCIN250 MG PO (06:32)
[2022-01-24] MEDS ORDERED: AMOX TR-K CLV1 EAC4 PO (06:32)
[2022-01-24] MEDS ORDERED: PHENERGAN25 M1 PO (06:32)
== END 2022-01-24 12:06 | disposition home or self-care (01) ==
LOC: FER 02:30
PROVIDERS: Internal Medicine
DX: J18.9 Pneumonia, unspecified organism (principal); I12.9 Hypertensive chronic kidney disease with stage 1 through stage 4 chronic kidney disease, or unspecified chronic kidney disease; N18.30 Chronic kidney disease, stage 3 unspecified; R10.13 Epigastric pain; I25.2 Old myocardial infarction; Z20.822 Contact with and (suspected) exposure to COVID-19
CPT/HCPCS: 36415; 71250; 80053; 83690; 83880; 84145; 84484; 85025; 85610; 85730; 93005; J0456; J0696; J2060; J2405; J7030; J7050; Q0169; U0002

== ENCOUNTER 2022-02-08 03:40 | Emergency (ER) | payer OTHER ==
[~2022-02-08 03:40] MED LIST changes: +AMOX TR-K CLV1 EAC4 PO; +MEDROL 4MG DOSEP4 MG PO
[2022-02-08 04:01] LABS: BASOPHIL 0.5 % (0-2); EOSINOPHIL 2.4 % (0-7); HCT 39.2 % (37.0-47.0); HGB 12.8 g/dl (12.5-16.0); MCHC 32.7 g/dL (32.0-36.0); MCV 91.8 fL (78.0-100.0); MONOCYTE 10.1 % (0-12); MPV 10.1 fL (6.0-9.5); NEUTROPHIL 65.5 % (41-80); NRBC 0; PLT 241 K/uL (150-400); RBC 4.27 M/uL (4.20-5.40); RDW 14.7 % (11.5-14.0); WBC 3.8 K/uL (4.0-10.5)
[2022-02-08 04:17] LABS: ALBUMIN 3.5 g/dL (3.4-5.0); BILIRUBIN - TOTAL 0.5 mg/dL (0.2-1.0); BUN/CREAT RATIO (CALC) 18.3 RATIO; CREATININE 1.09 mg/dL (0.51-0.95); GLOBULIN (CALCULATION) 3.7 g/dL; POTASSIUM 3.7 mmol/L (3.5-5.1); TOTAL PROTEIN 7.2 g/dL (6.4-8.2)
[2022-02-08 04:37] LABS: CORONAVIRUS 2019 SARS-COV-2 NEGATIVE (NEGATIVE); INFLUENZA A NAA NEGATIVE (NEGATIVE)
[2022-02-08] MEDS ORDERED: ONDANSETRON ODT4 MG PO (05:28)
== END 2022-02-08 05:40 | disposition home or self-care (01) ==
LOC: FER 03:40
PROVIDERS: Emergency Medicine
DX: J06.9 Acute upper respiratory infection, unspecified (principal); I12.9 Hypertensive chronic kidney disease with stage 1 through stage 4 chronic kidney disease, or unspecified chronic kidney disease; N18.9 Chronic kidney disease, unspecified; I25.10 Atherosclerotic heart disease of native coronary artery without angina pectoris; Z20.822 Contact with and (suspected) exposure to COVID-19; Z88.5 Allergy status to narcotic agent; Z88.8 Allergy status to other drugs, medicaments and biological substances; Z79.02 Long term (current) use of antithrombotics/antiplatelets; Z79.82 Long term (current) use of aspirin; Z79.899 Other long term (current) drug therapy
CPT/HCPCS: 36415; 80053; 85025; 99283; U0002

== ENCOUNTER 2022-02-19 22:52 | Emergency (ER) | payer OTHER ==
[2022-02-19 23:43] LABS: BASOPHIL 0.6 % (0-2); EOSINOPHIL 0.8 % (0-7); HCT 39.1 % (37.0-47.0); HGB 12.9 g/dl (12.5-16.0); LYMPHOCYTE 12.2 % (15-48); MCH 29.9 pg (25.0-31.0); MCV 90.5 fL (78.0-100.0); MONOCYTE 5.8 % (0-12); NEUTROPHIL 80.4 % (41-80); NRBC 0; PLT 256 K/uL (150-400); RBC 4.32 M/uL (4.20-5.40); RDW 14.2 % (11.5-14.0)
[2022-02-19 23:59] LABS: INR 0.94 (0.9-1.2); PROTHROMBIN TIME 12.3 SECONDS (11.9-13.9)
[2022-02-20] LABS: PTT 28.1 SECONDS (24.9-34.6)
[2022-02-20 00:17] LABS: ALBUMIN 3.4 g/dL (3.4-5.0); BILIRUBIN - TOTAL 0.3 mg/dL (0.2-1.0); BUN/CREAT RATIO (CALC) 18.6 RATIO; CREATININE 1.13 mg/dL (0.51-0.95); GLOBULIN (CALCULATION) 3.3 g/dL; POTASSIUM 3.1 mmol/L (3.5-5.1); TOTAL PROTEIN 6.7 g/dL (6.4-8.2)
[2022-02-20 00:46] LABS: CORONAVIRUS 2019 SARS-COV-2 NEGATIVE (NEGATIVE); INFLUENZA A NAA NEGATIVE (NEGATIVE)
== END 2022-02-20 01:18 | disposition home or self-care (01) ==
LOC: FER 22:52
PROVIDERS: Internal Medicine
DX: F41.0 Panic disorder [episodic paroxysmal anxiety] (principal); R11.2 Nausea with vomiting, unspecified; I12.9 Hypertensive chronic kidney disease with stage 1 through stage 4 chronic kidney disease, or unspecified chronic kidney disease; N18.9 Chronic kidney disease, unspecified; Z88.6 Allergy status to analgesic agent; Z88.8 Allergy status to other drugs, medicaments and biological substances; Z79.02 Long term (current) use of antithrombotics/antiplatelets; Z79.899 Other long term (current) drug therapy; Z20.822 Contact with and (suspected) exposure to COVID-19
CPT/HCPCS: 36415; 80053; 82009; 83605; 83690; 84145; 84484; 85025; 85610; 85730; 93005; J2060; J2405; J7030; U0002

== ENCOUNTER 2022-03-19 16:04 | Emergency (ER) | payer OTHER ==
[2022-03-19 18:31] LABS: CORONAVIRUS 2019 SARS-COV-2 NEGATIVE (NEGATIVE); INFLUENZA A NAA NEGATIVE (NEGATIVE)
[2022-03-19 19:41] LABS: BASOPHIL 0.4 % (0-2); EOSINOPHIL 0.5 % (0-7); HCT 40.9 % (37.0-47.0); HGB 13.7 g/dl (12.5-16.0); LYMPHOCYTE 11.2 % (15-48); MCH 30.1 pg (25.0-31.0); MCHC 33.5 g/dL (32.0-36.0); MCV 89.9 fL (78.0-100.0); MONOCYTE 6.6 % (0-12); MPV 10.8 fL (6.0-9.5); NEUTROPHIL 81.1 % (41-80); NRBC 0; PLT 263 K/uL (150-400); RBC 4.55 M/uL (4.20-5.40); RDW 13.6 % (11.5-14.0); WBC 5.6 K/uL (4.0-10.5)
[2022-03-19 19:55] LABS: BILIRUBIN - TOTAL 0.6 mg/dL (0.2-1.0); BUN/CREAT RATIO (CALC) 17.1 RATIO; CREATININE 1.11 mg/dL (0.51-0.95); POTASSIUM 3.6 mmol/L (3.5-5.1)
[2022-03-19] MEDS ORDERED: ZPAK PO (20:49)
[2022-03-19] MEDS ORDERED: MEDROL 4MG DOSEP4 MG PO (20:49)
== END 2022-03-19 22:30 | disposition home or self-care (01) ==
LOC: FER 16:04
PROVIDERS: Emergency Medicine; Internal Medicine
DX: J18.9 Pneumonia, unspecified organism (principal); I12.9 Hypertensive chronic kidney disease with stage 1 through stage 4 chronic kidney disease, or unspecified chronic kidney disease; N18.9 Chronic kidney disease, unspecified; I25.10 Atherosclerotic heart disease of native coronary artery without angina pectoris; J44.9 Chronic obstructive pulmonary disease, unspecified; Z20.822 Contact with and (suspected) exposure to COVID-19
CPT/HCPCS: 36415; 71045; 80053; 84484; 85025; 93005; J2405; J2930; U0002